=== PATIENT | female | born 1945 | race Caucasian/White ===

== ENCOUNTER 2022-02-17 08:21 | Emergency (ER) | payer MEDICARE | END 2022-02-17 10:30 | disposition home or self-care (01) | LOC: FB.ED 08:21 → SUPCPDRO 08:21 → FB.ED 10:30 | DX: S16.1XXA Strain of muscle, fascia and tendon at neck level, initial encounter (principal); S39.012A Strain of muscle, fascia and tendon of lower back, initial encounter; S00.83XA Contusion of other part of head, initial encounter; S60.222A Contusion of left hand, initial encounter; S60.221A Contusion of right hand, initial encounter; S00.12XA Contusion of left eyelid and periocular area, initial encounter; I10 Essential (primary) hypertension; E78.00 Pure hypercholesterolemia, unspecified; Z88.5 Allergy status to narcotic agent; Z79.82 Long term (current) use of aspirin; Z79.899 Other long term (current) drug therapy; W01.0XXA Fall on same level from slipping, tripping and stumbling without subsequent striking against object, initial encounter; Y92.009 Unspecified place in unspecified non-institutional (private) residence as the place of occurrence of the external cause | CPT/HCPCS: 70450; 72040; 72100; 99284 ==

== ENCOUNTER 2024-02-22 09:03 | Emergency (ER) | payer MEDICARE ==
[2024-02-22] MEDS ORDERED: Sodium Chloride 0.9% 10 ML Syringe FLUSH PRN (09:21)
[2024-02-22] MEDS ORDERED: Nitroglycerin 0.4 MG Tab.SL SL PRN (09:24)
[2024-02-22] MEDS: Aspirin 81 MG Tab.Chew PO ONE (09:33)
[2024-02-22 09:43] LABS: BASOPHILS PERCENT AUTO 0.3 % (0.2-1.5); EOSINOPHILS ABSOLUTE AUTO 0.1 x10-3/uL (0.0-0.8); EOSINOPHILS PERCENT AUTO 1.9 % (0.6-8.1); HEMATOCRIT 39.8 % (34.2-48.2); LYMPHOCYTES ABSOLUTE AUTO 1.8 x10-3/uL (1.0-4.4); LYMPHOCYTES PERCENT AUTO 37.9 % (18.4-52.1); MEAN CORPUSCULAR HEMOGLOBIN 28.7 pg (23.9-33.9); MEAN CORPUSCULAR HGB CONC 32.7 g/dL (31.9-34.8); MEAN CORPUSCULAR VOLUME 87.7 fL (76.7-100.5); MEAN PLATELET VOLUME 8.3 fL (7.1-12.4); MONOCYTES ABSOLUTE AUTO 0.4 x10-3/uL (0.3-1.0); MONOCYTES PERCENT AUTO 7.6 % (4.4-15.7); NEUTROPHILS ABSOLUTE AUTO 2.5 x10-3/uL (1.5-6.3); NEUTROPHILS PERCENT AUTO 52.3 % (30.8-76.2); PLATELET COUNT,PLT 189 x10(3)uL (151-488); RED BLOOD CELL COUNT 4.53 x10(6)uL (3.60-5.20); RED CELL DISTRIBUTION WIDTH 13.6 % (12.3-16.5); WHITE BLOOD CELL COUNT,WBC 4.7 x10-3/uL (3.0-10.3)
[2024-02-22 09:47] LABS: BLOOD UREA NITROGEN,BUN 22 mg/dL (7-18); CALCIUM 9.2 mg/dL (8.6-10.2); CARBON DIOXIDE,CO2 26 mmol/L (21-32); CHLORIDE,CL 105 mmol/L (100-110); ESTIMATED GFR 58 mL/min (>60); GLUCOSE RANDOM 110 mg/dL (80-116); POTASSIUM,K 3.9 mmol/L (3.5-5.3); SODIUM,NA 141 mmol/L (135-145)
[2024-02-22 09:52] LABS: A/G RATIO 1.2; ALANINE AMINOTRANSFERASE,ALT 15 U/L (12-36); ALBUMIN 3.6 g/dL (3.2-4.6); ALKALINE PHOSPHATASE 70 IU/L (56-112); ASPARTATE AMNIOTRANSFERASE,AST 18 IU/L (5-25); BILIRUBIN TOTAL 0.8 mg/dL (0.1-1.3); PROTEIN TOTAL,TP 6.6 g/dL (6.0-8.0)
[2024-02-22 09:59] LABS: TROPONIN I 9.9 pg/mL (4.0-60.3)
[2024-02-22] MEDS: Sodium Chloride 0.9% 1,000 ML IV SCH (10:17)
[2024-02-22 10:35] LABS: D-DIMER QUANTITATIVE 0.48 mg/LFEU (0.0-0.59); PTT,PARTIAL THROMBOPLSTIN TIME 24.3 SECONDS (24.4-33.2)
[2024-02-22 10:40] LABS: INR 0.95 (1.00-1.24); PROTHROMBIN TIME 9.9 sec (9.0-11.1)
== END 2024-02-22 11:17 | disposition home or self-care (01) ==
LOC: FB.ED 09:03
DX: R07.9 Chest pain, unspecified (principal); I10 Essential (primary) hypertension; F41.1 Generalized anxiety disorder; F32.A Depression, unspecified; E78.5 Hyperlipidemia, unspecified; R06.9 Unspecified abnormalities of breathing; E78.00 Pure hypercholesterolemia, unspecified; Z88.5 Allergy status to narcotic agent; Z79.82 Long term (current) use of aspirin; Z79.899 Other long term (current) drug therapy
CPT/HCPCS: 36415; 71045; 80053; 83880; 84484; 85025; 85379; 85610; 85730; 93005; 99285; A9270; J7030